=== PATIENT | female | born 1965 | race Caucasian/White ===

== ENCOUNTER 2016-08-12 11:09 | Emergency (ER) | payer MEDICAID ==
--- NOTE | 2016-08-12 11:15 | ED ---
General Adult HPI - General Stated complaint: chest pain Time Seen by Provider: 08/12/16 11:13 Source: RN notes reviewed, old records reviewed - History of Present Illness Initial comments: This is a 51-year-old female here for evaluation. This patient comes in here today for evaluation of left breast pain left chest pain. He does admit to anxiety. He does have family history of heart disease doesn't self-employed blood pressure. Patient's states she has no shortness of breath with feels very anxious, tearful during interview, patient just states that she is concerned something may be wrong she's had issues with her breast before including cellulitis and states this feels just like that. She is to her when she touched touches her left breast although denies any fever. She does have surgery on that left breast - Related Data Home Medications Medication Instructions Recorded Confirmed ALPRAZolam [Xanax] 0.25 mg PO BID PRN 08/12/16 08/12/16 Aspirin 650 mg PO ONCE 08/12/16 08/12/16 Biotin 5,000 mcg PO DAILY 08/12/16 08/12/16 Cyanocobalamin (Vitamin B-12) 1,000 mcg PO Q48H 08/12/16 08/12/16 [Vitamin B-12] Furosemide [Lasix] 20 mg PO DAILY 08/12/16 08/12/16 Irbesartan [Avapro] 300 mg PO DAILY 08/12/16 08/12/16 Previous Rx's Medication Instructions Recorded Clindamycin [Cleocin] 150 mg PO Q6H #28 capsule 08/12/16 Sulfamethox-Tmp 800-160Mg [Bactrim 1 tab PO Q12HR #14 tab 08/12/16 DS 800-160 mg] Allergies Allergy/AdvReac Type Severity Reaction Status Date / Time varenicline [From Chantix] Allergy Rash/Hives Verified 08/12/16 11:54 Review of Systems ROS Statement: Those systems with pertinent positive or pertinent negative responses have been documented in the HPI. ROS Other: All systems not noted in ROS Statement are negative. General Exam - General Exam Comments Initial Comments: Left lateral breast tenderness with scar tissue General appearance: alert, in no apparent distress Head exam: Present: atraumatic, normocephalic, normal inspection Eye exam: Present: normal appearance, PERRL, EOMI. Absent: scleral icterus, conjunctival injection, periorbital swelling ENT exam: Present: normal exam, mucous membranes moist Neck exam: Present: normal inspection. Absent: tenderness, meningismus, lymphadenopathy Respiratory exam: Present: normal lung sounds bilaterally. Absent: respiratory distress, wheezes, rales, rhonchi, stridor Cardiovascular Exam: Present: regular rate, normal rhythm, normal heart sounds. Absent: systolic murmur, diastolic murmur, rubs, gallop, clicks GI/Abdominal exam: Present: soft, normal bowel sounds. Absent: distended, tenderness, guarding, rebound, rigid Extremities exam: Present: normal inspection, full ROM, normal capillary refill. Absent: tenderness, pedal edema, joint swelling, calf tenderness Back exam: Present: normal inspection Neurological exam: Present: alert, oriented X3, CN II-XII intact Psychiatric exam: Present: normal affect, normal mood Skin exam: Present: warm, dry, intact, normal color. Absent: rash Course Vital Signs 08/12/16 08/12/16 08/12/16 11:16 12:21 13:21 Temperature 98.7 F Pulse Rate 107 H 100 102 H Respiratory 20 20 20 Rate Blood Pressure 184/83 153/69 138/76 O2 Sat by Pulse 100 97 Oximetry 08/12/16 15:29 Temperature 99.4 F Pulse Rate 95 Respiratory 20 Rate Blood Pressure 129/70 O2 Sat by Pulse 96 Oximetry - Reevaluation(s) Reevaluation #1: 08/12/16 13:16 Patient's symptoms remain the same EKG Findings - EKG Comments: EKG Findings:: EKG shows sinus tach rate 101, [place] 142, QRS 88, QTC 433 Medical Decision Making - Medical Decision Making 51 female ear feeling much less anxious with normal EKG and troponin feeling much less stressed. Patient does still feel some warmth and tenderness to her left breast, feels like she is having return of cellulitis. Would like to try antibiotics and outpatient basis will return of chest pain or shortness of breath increases or worsens - Lab Data Result diagrams: 08/12/16 11:39 08/12/16 11:39 Lab Results 08/12/16 08/12/16 08/12/16 Range/Units 11:39 11:39 11:39 WBC 16.2 H (3.8-10.6) k/uL RBC 4.16 (3.80-5.40) m/uL Hgb 13.7 (11.4-16.0) gm/dL Hct 39.9 (34.0-46.0) % MCV 95.8 (80.0-100.0) fL MCH 33.0 (25.0-35.0) pg MCHC 34.4 (31.0-37.0) g/dL RDW 11.5 (11.5-15.5) % Plt Count 398 (150-450) k/uL Neutrophils % 88 % Lymphocytes % 7 % Monocytes % 2 % Eosinophils % 1 % Basophils % 0 % Neutrophils # 14.2 H (1.3-7.7) k/uL Lymphocytes # 1.2 (1.0-4.8) k/uL Monocytes # 0.3 (0-1.0) k/uL Eosinophils # 0.2 (0-0.7) k/uL Basophils # 0.1 (0-0.2) k/uL PT (9.0-12.0) sec INR (<1.1) APTT (22.0-30.0) sec Sodium 128 L (137-145) mmol/L Potassium 4.3 (3.5-5.1) mmol/L Chloride 94 L (98-107) mmol/L Carbon Dioxide 24 (22-30) mmol/L Anion Gap 10 mmol/L BUN 8 (7-17) mg/dL Creatinine 0.44 L (0.52-1.04) mg/dL Est GFR (MDRD) Af Amer >60 (>60 ml/min/1.73 sqM) Est GFR (MDRD) Non-Af >60 (>60 ml/min/1.73 sqM) Glucose 107 H (74-99) mg/dL Calcium 10.0 (8.4-10.2) mg/dL Magnesium 1.6 (1.6-2.3) mg/dL Total Bilirubin 0.8 (0.2-1.3) mg/dL AST 22 (14-36) U/L ALT 28 (9-52) U/L Alkaline Phosphatase 82 (38-126) U/L Total Creatine Kinase 142 H (30-135) U/L CK-MB (CK-2) 1.6 (0.0-2.4) ng/mL CK-MB (CK-2) Rel Index 1.1 Troponin I <0.012 (0.000-0.034) ng/mL Total Protein 8.0 (6.3-8.2) g/dL Albumin 5.0 (3.5-5.0) g/dL Lipase 124 (23-300) U/L / Range/Units 11:39 WBC (3.8-10.6) k/uL RBC (3.80-5.40) m/uL Hgb (11.4-16.0) gm/dL Hct (34.0-46.0) % MCV (80.0-100.0) fL MCH (25.0-35.0) pg MCHC (31.0-37.0) g/dL RDW (11.5-15.5) % Plt Count (150-450) k/uL Neutrophils % % Lymphocytes % % Monocytes % % Eosinophils % % Basophils % % Neutrophils # (1.3-7.7) k/uL Lymphocytes # (1.0-4.8) k/uL Monocytes # (0-1.0) k/uL Eosinophils # (0-0.7) k/uL Basophils # (0-0.2) k/uL PT 10.2 (9.0-12.0) sec INR 1.0 (<1.1) APTT 25.2 (22.0-30.0) sec Sodium (137-145) mmol/L Potassium (3.5-5.1) mmol/L Chloride (98-107) mmol/L Carbon Dioxide (22-30) mmol/L Anion Gap mmol/L BUN (7-17) mg/dL Creatinine (0.52-1.04) mg/dL Est GFR (MDRD) Af Amer (>60 ml/min/1.73 sqM) Est GFR (MDRD) Non-Af (>60 ml/min/1.73 sqM) Glucose (74-99) mg/dL Calcium (8.4-10.2) mg/dL Magnesium (1.6-2.3) mg/dL Total Bilirubin (0.2-1.3) mg/dL AST (14-36) U/L ALT (9-52) U/L Alkaline Phosphatase (38-126) U/L Total Creatine Kinase (30-135) U/L CK-MB (CK-2) (0.0-2.4) ng/mL CK-MB (CK-2) Rel Index Troponin I (0.000-0.034) ng/mL Total Protein (6.3-8.2) g/dL Albumin (3.5-5.0) g/dL Lipase (23-300) U/L - Radiology Data Radiology results: report reviewed (Chest x-ray negative for acute disease, ultrasound breast is normal), image reviewed Disposition Clinical Impression: Cellulitis of left breast Disposition: HOME SELF-CARE Condition: Good Instructions: Cellulitis (ED) Prescriptions: Clindamycin [Cleocin] 150 mg PO Q6H #28 capsule Sulfamethox-Tmp 800-160Mg [Bactrim DS 800-160 mg] 1 tab PO Q12HR #14 tab Referrals: Radha Thompson MD [Primary Care Provider] - 1-2 days
[2016-08-12 11:22] VITALS: RESP 20
[2016-08-12 11:54] LABS: Basophils # (A) 0.1 k/uL (0-0.2); Basophils % (A) 0 %; CH 34.7; CHCM 36.3; Eosinophils # (A) 0.2 k/uL (0-0.7); Eosinophils % (A) 1 %; HCT 39.9 % (34.0-46.0); HDW 2.26; HGB 13.7 gm/dL (11.4-16.0); Luc % (Auto) 1; Lymphocytes # (A) 1.2 k/uL (1.0-4.8); Lymphocytes % (A) 7 %; MCHC 34.4 g/dL (31.0-37.0); MCV 95.8 fL (80.0-100.0); Mean Platelet Volume 6.5; Monocytes # (A) 0.3 k/uL (0-1.0); Monocytes % (A) 2 %; Neutrophils # (A) 14.2 k/uL (1.3-7.7); Neutrophils % (A) 88 %; RBC 4.16 m/uL (3.80-5.40); RDW 11.5 % (11.5-15.5); WBC 16.2 k/uL (3.8-10.6); WBC (Perox) 16.05
[2016-08-12 12:00] LABS: Partial Thromboplastin Time 25.2 sec (22.0-30.0); Prothrombin Time 10.2 sec (9.0-12.0)
[2016-08-12 12:04] LABS: ALT 28 U/L (9-52); AST 22 U/L (14-36); Alkaline Phosphatase 82 U/L (38-126); Anion Gap 10 mmol/L; Blood Urea Nitrogen 8 mg/dL (7-17); Carbon Dioxide 24 mmol/L (22-30); Chloride 94 mmol/L (98-107); Glucose 107 mg/dL (74-99); Magnesium 1.6 mg/dL (1.6-2.3); Non-African American GFR(MDRD) >60 (>60 ml/min/1.73 sqM); Potassium 4.3 mmol/L (3.5-5.1); Sodium 128 mmol/L (137-145); Total Bilirubin 0.8 mg/dL (0.2-1.3)
[2016-08-12 12:13] LABS: Creatine Kinase 142 U/L (30-135)
--- NOTE | 2016-08-12 12:15 | XR ---
EXAMINATION TYPE: XR chest 2V DATE OF EXAM: 08/12/2016 12:01 PM COMPARISON: NONE HISTORY: Left-sided chest pain. TECHNIQUE: Frontal and lateral views of the chest are obtained. FINDINGS: There is no focal air space opacity, pleural effusion, or pneumothorax seen. The cardiac silhouette size is within normal limits. The osseous structures are intact. IMPRESSION: No acute process.
[2016-08-12 12:26] LABS: Creatine Kinase MB 1.6 ng/mL (0.0-2.4); Troponin I <0.012 ng/mL (0.000-0.034)
[2016-08-12] MEDS ORDERED: ACETAMINOPHEN IV (For NPO) 1,000 MG in EMPTY BAG 1 BAG IVPB STA (13:16)
[2016-08-12] MEDS ORDERED: KETOROLAC 30 MG/ML 1 ML VIAL IVP STA (13:16)
--- NOTE | 2016-08-12 13:50 | USB ---
Reason for exam: clinical finding. Indicated problem(s): pain in the left breast. US Breast LT Left breast ultrasound includes all four quadrants, the retroareolar region and axilla. Finding demonstrate a benign lymph node at the axilla tail. No significant cystic or solid lesion greater than 0.50cm. These results were verbally communicated with the patient and result sheet given to the patient on 08/12/16. ASSESSMENT: Benign, BI-RAD 2 RECOMMENDATION: Routine screening mammogram of both breasts. (due now for annual exam)
[2016-08-12] MEDS ORDERED: SODIUM CHLORIDE 0.9% 1,000 ML IV STA (14:13)
[2016-08-12] MEDS ORDERED: AMPICILLIN-SULBACTAM 3 GM in SODIUM CHLORIDE 0.9% 100 ML IVPB STA (14:15)
[2016-08-12 15:34] VITALS: BP 129/70; PULSE 95; TEMP 99.4
== END 2016-08-12 15:36 | disposition home or self-care (01) ==
LOC: EC 11:09
DX: N61.0 Mastitis without abscess (principal); R07.9 Chest pain, unspecified; F41.9 Anxiety disorder, unspecified; Z79.82 Long term (current) use of aspirin; Z79.899 Other long term (current) drug therapy; Z88.8 Allergy status to other drugs, medicaments and biological substances; Z82.49 Family history of ischemic heart disease and other diseases of the circulatory system
CPT/HCPCS: 36415; 93005; 80053; 82550; 82553; 83690; 83735; 84484; 85025; 85610; 85730; 71020; 76641; 99285; 96365; 96367; 96375; J1885; J0295; J0131

== ENCOUNTER 2017-06-17 11:30 | Day surgery (SDC) | payer MEDICAID ==
[2017-06-14 15:21] VITALS: BMI 23.0
[~2017-06-17 11:30] MED LIST: LACTATED RINGERS 1,000 ML IV SCH
[2017-06-17] MEDS ORDERED: LIDOCAINE 1% 20 ML VIAL (10MG/ML) FOR IV START INTRADERMA ONE (12:15)
[2017-06-17 12:27] VITALS: TEMP 98.5
[2017-06-17] MEDS ORDERED: PROPOFOL 10 MG/ML 20 ML VIAL IV ONE (12:45)
[2017-06-17] MEDS ORDERED: LIDOCAINE 1% INJ 10MG/ML (20 ML MDV) ONE (12:45)
--- NOTE | 2017-06-17 12:48 | P.GSHP ---
History of Present Illness H&P Date: 06/17/17 Chief Complaint: Colon cancer screening Patient here today for colonoscopy. She has not had one previously. No family history of colon cancer. No bowel related complaints. Past Medical History Past Medical History: Hyperlipidemia, Hypertension, Seizure Disorder Additional Past Medical History / Comment(s): eczema History of Any Multi-Drug Resistant Organisms: None Reported Past Surgical History: Breast Surgery, Tonsillectomy Additional Past Surgical History / Comment(s): BREAST AUGMENTATION, cyst removed from left breast Past Anesthesia/Blood Transfusion Reactions: No Reported Reaction Smoking Status: Current every day smoker - Past Family History Mother Family Medical History: Cancer Father Family Medical History: Cancer, Pulmonary Embolus Medications and Allergies Home Medications Medication Instructions Recorded Confirmed Type ALPRAZolam [Xanax] 0.25 mg PO BID PRN 08/12/16 06/17/17 History Biotin 5,000 mcg PO DAILY 08/12/16 06/17/17 History Furosemide [Lasix] 20 mg PO DAILY 08/12/16 06/17/17 History Irbesartan [Avapro] 300 mg PO DAILY 08/12/16 06/17/17 History Cyanocobalamin (Vitamin B-12) 2,500 mcg PO DIRECTED 06/14/17 06/17/17 History [Vitamin B12] Allergies Allergy/AdvReac Type Severity Reaction Status Date / Time varenicline [From Chantix] Allergy Rash/Hives Verified 06/14/17 15:13 Surgical - Exam Vital Signs Temp Pulse Resp BP Pulse Ox 98.5 F 78 16 150/80 99 06/17/17 12:26 06/17/17 12:26 06/17/17 12:26 06/17/17 12:26 06/17/17 12:26 Physical exam: General: Well-developed, well-nourished HEENT: Normocephalic, sclerae nonicteric Abdomen: Nontender, nondistended Extremities: No edema Neuro: Alert and oriented Assessment and Plan (1) Colon cancer screening Narrative/Plan: Will proceed with colonoscopy at this time. Current Visit: Yes Status: Acute Code(s): Z12.11 - ENCOUNTER FOR SCREENING FOR MALIGNANT NEOPLASM OF COLON SNOMED Code(s): 248296667
--- NOTE | 2017-06-17 13:11 | P.PCN ---
Date of Procedure: 06/17/17 Procedure(s) Performed: PREOPERATIVE DIAGNOSIS: Colon cancer screening POSTOPERATIVE DIAGNOSIS: Multiple small colon polyps PROCEDURE: Colonoscopy with snare polypectomy and biopsy ANESTHESIA: MAC SURGEON: Bud Perez M.D. SPECIMENS: Polyps ENDOSCOPIC PROCEDURE: The patient was placed on the endoscopy table in the left decubitus position. The Olympus colonoscope was inserted into the anus and passed under direct visualization to the base of the cecum. The appendiceal orifice was visualized. From that point the scope was slowly withdrawn inspecting all surfaces carefully. There were no neoplastic inflammatory or polypoid lesions throughout the cecum or ascending colon. At the hepatic flexure a small polyp was identified and removed using the cold biopsy forceps. In the transverse colon there were 2 small polyps both removed using the snare with cautery technique. In the sigmoid colon a small polyp was again removed using the snare with cautery technique. The rectum was free of abnormalities. There was no visible diverticulosis present. Digital rectal examination was normal. The patient was taken to the recovery room in stable condition per anesthesia guidelines. RECOMMENDATIONS: Await biopsy results but anticipate follow-up colonoscopy 5 years.
[2017-06-17 13:27] VITALS: BP 139/84; PULSE 66; RESP 16
== END 2017-06-17 13:46 | disposition home or self-care (01) ==
LOC: ORWHC2ENDO 11:30
PROVIDERS: ATTEND Surgery
DX: Z12.11 Encounter for screening for malignant neoplasm of colon (principal); D12.3 Benign neoplasm of transverse colon; K63.5 Polyp of colon; E78.5 Hyperlipidemia, unspecified; I10 Essential (primary) hypertension; G40.909 Epilepsy, unspecified, not intractable, without status epilepticus; L30.9 Dermatitis, unspecified; Z85.07 Personal history of malignant neoplasm of pancreas; Z79.899 Other long term (current) drug therapy; Z88.8 Allergy status to other drugs, medicaments and biological substances; F17.210 Nicotine dependence, cigarettes, uncomplicated
CPT/HCPCS: 88305; 45380; 45385; J2001; J2704

== ENCOUNTER → 2017-08-31 | Outpatient (CLI) | payer MEDICAID ==
--- NOTE | 2017-08-31 07:35 | US ---
EXAMINATION TYPE: US thyroid st tissue head/neck DATE OF EXAM: 08/31/2017 COMPARISON: NONE CLINICAL HISTORY: E07.9 Disorder of the thyroid. Pt states possible nodule felt on right side by phys ician/ Pt states no known thyroid issues GLAND SIZE: Right Lobe: 4.1 x 1.7 x 1.3 cm Overall Parenchyma: Slightly heterogeneous Left Lobe: 4.0 x 0.9 x 1.1 cm Overall Parenchyma: Slightly heterogeneous Isthmus Thickness: 0.2 cm Bilateral neck scanned, no evidence of lymphadenopathy. No evidence of nodules bilaterally, thyroid h ypervascular. IMPRESSION: Normal thyroid scan
== END | disposition home or self-care (01) ==
LOC: RADUSWWP 06:49
PROVIDERS: ATTEND Family Medicine
DX: E07.9 Disorder of thyroid, unspecified (principal)
CPT/HCPCS: 76536

== ENCOUNTER → 2017-08-31 | Outpatient (CLI) | payer MEDICAID ==
[2017-08-31 07:53] LABS: Anion Gap 12 mmol/L; Blood Urea Nitrogen 7 mg/dL (7-17); Calcium 10.1 mg/dL (8.4-10.2); Carbon Dioxide 23 mmol/L (22-30); Chloride 96 mmol/L (98-107); Glucose 108 mg/dL (74-99); Potassium 4.3 mmol/L (3.5-5.1); Sodium 131 mmol/L (137-145)
[2017-08-31 19:14] LABS: Thyroid Peroxidase Antibodies 99.3 U/mL (0.0-60.0)
== END | disposition home or self-care (01) ==
LOC: LABWHC1 07:07
PROVIDERS: ATTEND Family Medicine
DX: E07.9 Disorder of thyroid, unspecified (principal); E22.2 Syndrome of inappropriate secretion of antidiuretic hormone; B07.8 Other viral warts
CPT/HCPCS: 36415; 80048; 84439; 84443; 84480; 86376

== ENCOUNTER → 2017-11-22 | Outpatient (CLI) | payer MEDICAID ==
--- NOTE | 2017-11-22 10:00 | MM ---
Reason for exam: clinical finding. History: Patient is postmenopausal. Family history of breast cancer in mother at age 50. Breast lifts of both breasts, 2003. Took hormonal contraceptives for 15 years. Indicated problem(s): non-bloody discharge, skin thickening or retraction, and other indicated problem in the left breast. Physical Findings: Nurse did not find any significant physical abnormalities on exam. MG 3D Diag Mammo W/Cad LT CC, MLO, ML, spot compression CC, and spot compression MLO view(s) were taken of the left breast. The breast tissue is extremely dense which could obscure a lesion on mammography. Focal asymmetric density 12 o'clock left breast less conspicuous on spot images. Ultrasound recommended. These results were verbally communicated with the patient and result sheet given to the patient on 11/22/17. ASSESSMENT: Incomplete: need additional imaging evaluation, BI-RAD 0 RECOMMENDATION: Ultrasound of the left breast.
--- NOTE | 2017-11-22 10:01 | USB ---
Reason for exam: additional evaluation requested from abnormal screening. History: Patient is postmenopausal. Family history of breast cancer in mother at age 50. Breast lifts of both breasts, 2003. Took hormonal contraceptives for 15 years. US Breast LT Left complete breast ultrasound includes all four quadrants, the retroareolar region and axilla. Finding demonstrates no cystic or solid lesion seen. These results were verbally communicated with the patient and result sheet given to the patient on 11/22/17. ASSESSMENT: Probably benign, BI-RAD 3 RECOMMENDATION: Follow-up diagnostic mammogram of the left breast in 6 months. Manage patient on a clinical basis.
== END | disposition home or self-care (01) ==
LOC: RADMAMWWP 08:05
PROVIDERS: ATTEND Family Medicine
DX: R92.8 Other abnormal and inconclusive findings on diagnostic imaging of breast (principal); N64.52 Nipple discharge
CPT/HCPCS: 77061; 77065

== ENCOUNTER → 2018-02-23 | Outpatient (CLI) | payer MEDICAID ==
[2018-02-23 15:14] VITALS: BP 138/81; PULSE 84; BMI 23.0
--- NOTE | 2018-02-23 15:33 | P.GSHP ---
History of Present Illness H&P Date: 02/23/18 Issues a 52-year-old white female who presents with a complaint of multiple episodes of cellulitis in the left breast. The last episode was approximately a month ago. She states that she develops crusting of the left nipple which becomes itchy she then has redness of the breast and a high fever. She has not noted any lumps in her breasts. She has no complaints related to the right breast. Patient had a left breast mammogram performed on [id number]. A focal asymmetric density was noted at 12:00 in the left left breast and an ultrasound was recommended and performed. This did not reveal any cystic or solid lesion was felt to be most likely benign and follow-up diagnostic mammogram in 6 months was recommended. She has been treated in the past with Keflex and had resolution with this. Family history: 1. mother: breast cacner in late 60's 2. father: pancreatic cancer 3. maternal aunt: breast cancer 60's Hormonal history: Menarche:12 Pregnancies: 2 pregnancies, 2 children, first born at 27, did not breast-feed Menopause: 40 control pills: Negative Hormones: Negative Past surgical history: 1. Depressed left bilateral 2. Cyst removed from breast Past Medical History: 1. HTN Social History: 1. smoke: yes 1/PPD for 30 years 2. Alcohol: Beer weekly 3. Marijuana: - Constitutional Constitutional: Denies chills, Denies fever - EENT Eyes: denies blurred vision, denies pain Ears: deny: decreased hearing, tinnitus Ears, nose, mouth and throat: Denies headache, Denies sore throat - Breasts Breasts: bilateral: as per HPI - Cardiovascular Cardiovascular: Reports high blood pressure - Respiratory Comment: nictine dependance Respiratory: Denies cough, Denies 7 - Gastrointestinal Gastrointestinal: Denies abdominal pain, Denies diarrhea, Denies nausea, Denies vomiting - Genitourinary (Female) Genitourinary: Denies dysuria, Denies hematuria - Menstruation Menstruation: Reports postmenopausal - Musculoskeletal Comment: none scheduled for a bone density - Integumentary Comment: Eczema - Neurological Neurological: Denies numbness, Denies weakness - Psychiatric Psychiatric: Denies anxiety, Denies depression - Endocrine Endocrine: Denies fatigue, Denies weight change - Hematologic/Lymphatic Comment: none - Allergic/Immunologic Comment: chantix Past Medical History Past Medical History: Hyperlipidemia, Hypertension, Seizure Disorder Additional Past Medical History / Comment(s): eczema History of Any Multi-Drug Resistant Organisms: None Reported Past Surgical History: Breast Surgery, Tonsillectomy Additional Past Surgical History / Comment(s): BREAST AUGMENTATION, cyst removed from left breast Past Anesthesia/Blood Transfusion Reactions: No Reported Reaction Smoking Status: Current every day smoker - Past Family History Mother Family Medical History: Cancer Father Family Medical History: Cancer, Pulmonary Embolus Medications and Allergies Home Medications Medication Instructions Recorded Confirmed Type ALPRAZolam [Xanax] 0.25 mg PO BID PRN 08/12/16 06/17/17 History Biotin 5,000 mcg PO DAILY 08/12/16 06/17/17 History Furosemide [Lasix] 20 mg PO DAILY 08/12/16 06/17/17 History Irbesartan [Avapro] 300 mg PO DAILY 08/12/16 06/17/17 History Cyanocobalamin (Vitamin B-12) 2,500 mcg PO DIRECTED 06/14/17 06/17/17 History [Vitamin B12] Allergies Allergy/AdvReac Type Severity Reaction Status Date / Time varenicline [From Chantix] Allergy Rash/Hives Verified 06/14/17 15:13 Surgical - Exam - General well developed, well nourished, no distress - Eyes normal ocular movement, no icteric - ENT no hearing loss, no congestion - Neck no masses, trachea midline - Respiratory normal respiratory effort, clear to auscultation - Cardiovascular Rhythm: regular Heart Sounds: normal: S1, S2 - Abdomen Abdomen: soft, non tender, no guarding, no rigid, no rebound - Integumentary well healed scars of both breast - Neurologic no disoriented, no combative - Musculoskeletal normal gait - Psychiatric oriented to time, oriented to person, oriented to place, speech is normal, memory intact Breast examination: Right breast: well healed scars from left mammoplasty multi-positional exam of dominant masses or nodules of concern Right axilla: No adenopathy of concern Left breast: Well-healed scars from her mammoplasty no dominant masses or nodules of concern on multi-positional exam Left axilla: No adenopathy of concern Results Mammogram results reviewed for the left breast, she is going to have a right breast mammogram performed Assessment and Plan Assessment: Impression: 1. Recurrent episodes of left breast cellulitis 2. Nicotine dependence 3. Hypertension 4. Postmenopausal 5. Eczema Plan: 1. Right breast mammogram 2. Abstain from nicotine and caffeine if possible 3. Conservative management Conversation was had with the patient regarding the fact that nicotine or caffeine may exacerbate fibrocystic changes in the breast. She is encouraged to abstain from these. If she has recurrent cellulitis of the breast and would like to see her at that time. cc: Dr. Thompson
--- NOTE | 2018-02-24 08:45 | MM ---
Reason for exam: follow-up at short interval from prior study. Last mammogram was performed 3 months ago. History: Patient is postmenopausal. Family history of breast cancer in mother at age 50. Breast lifts of both breasts, 2002. Took hormonal contraceptives for 15 years. Physical Findings: Breast exam performed by Dr. Ross. MG 3D Diag Mammo W/Cad RT CC and MLO view(s) were taken of the right breast. Prior study comparison: November 22, 2017, left breast MG 3d diag mammo w/cad LT. The breast tissue is heterogeneously dense. This may lower the sensitivity of mammography. No significant new findings when compared with previous films. These results were verbally communicated with the patient and result sheet given to the patient on 02/23/18. ASSESSMENT: Probably benign, BI-RAD 3 RECOMMENDATION: Follow-up diagnostic mammogram of both breasts in 6 months. Patient's left breast was performed 3 months ago. Short interval follow up of the leftbreast can be performed in 6 months from now and this can be used as the patient's new annual date.
== END | disposition home or self-care (01) ==
LOC: WWCWWP 14:58
PROVIDERS: ATTEND Surgery
DX: N64.52 Nipple discharge (principal)
CPT/HCPCS: 77061; 77065

== ENCOUNTER → 2018-03-23 | Outpatient (CLI) | payer MEDICAID ==
--- NOTE | 2018-03-23 16:12 | BD ---
EXAMINATION TYPE: Axial Bone Density DATE OF EXAM: 03/23/2018 COMPARISON: NONE CLINICAL HISTORY: Postmenopausal female. Osteoporosis screening. Height: 61.5 Weight: 130.7 FRAX RISK QUESTIONS: Alcohol (3 or more units per day): no Family History (Parent hip fracture): no Glucocorticoids (More than 3mos): no (Ex: prednisone, prednisolone, methylprednisolone, dexamethasone, and hydrocortisone). History of Fracture in Adulthood: no Secondary Osteoporosis: 1. Type 1 Diabetes: no 2. Hyperthyroidism: no 3. Menopause before 45: yes 4. Malnutrition: no 5. Chronic liver disease: no Rheumatoid Arthritis: no Current Tobacco Use: yes RISK FACTORS HISTORY OF: Family History of Osteoporosis: no Active: yes Diet low in dairy products/other sources of calcium: no Postmenopausal woman: age 40 Lost more than 2 inches in height since high school: no MEDICATIONS: Lasix, vit b12 Additional History: EXAM MEASUREMENTS: Bone mineral densitometry was performed using the [employer] System. Bone mineral density as measured about the Lumbar spine is: ----- L1-L4(G/cm2): 1.083 T Score Values are as follows: ----- L2: -1.7 ----- L3: -0.5 ----- L4: -0.1 ----- L1-L4: -0.8 Bone mineral density : baseline Bone mineral density about the R hip (g/cm2): 0.808 Bone mineral density about the L hip (g/cm2): 0.856 T Score values are as follows: -----R Neck: -1.3 -----L Neck: -1.7 -----R Total: -0.9 -----L Total: -0.8 Bone mineral density : baseline IMPRESSION: Osteopenia (T Score between -2.5 and -1). There is slightly increased risk of fracture and the patient may be considered for treatment. Re-Screen 2-5 years. NOTE: T-SCORE=SD OF THE YOUNG ADULT MEAN.
== END | disposition home or self-care (01) ==
LOC: RADMAMWWP 15:28
PROVIDERS: ATTEND Family Medicine
DX: M85.80 Other specified disorders of bone density and structure, unspecified site (principal); Z78.0 Asymptomatic menopausal state
CPT/HCPCS: 77080

== ENCOUNTER → 2018-11-08 | Outpatient (CLI) | payer MEDICAID ==
--- NOTE | 2018-11-08 09:19 | MM ---
Reason for exam: follow-up at short interval from prior study. Last mammogram was performed 8 months ago. History: Patient is postmenopausal. Family history of breast cancer in mother at age 50. Breast lifts of both breasts, 2002. Took hormonal contraceptives for 15 years. Physical Findings: Nurse did not find any significant physical abnormalities on exam. MG 3D Diag Mammo W/Cad KESHAWN Bilateral CC and MLO view(s) were taken. Prior study comparison: February 23, 2018, right breast MG 3d diag mammo w/cad RT. November 22, 2017, left breast MG 3d diag mammo w/cad LT. The breast tissue is heterogeneously dense. This may lower the sensitivity of mammography. Post surgical change bilaterally. Right lateral middle depth asymmetry is seen on spot CC view, this looks unchanged from the prior exams. This is seen directly posterior to the scar and measures 2mm. These results were verbally communicated with the patient and result sheet given to the patient on 11/08/18. ASSESSMENT: Benign, BI-RAD 2 RECOMMENDATION: Routine screening mammogram of both breasts in 1 year.
== END | disposition home or self-care (01) ==
LOC: RADMAMWWP 06:46
PROVIDERS: ATTEND Surgery
DX: R92.8 Other abnormal and inconclusive findings on diagnostic imaging of breast (principal)
CPT/HCPCS: 77062; 77066

== ENCOUNTER → 2019-12-27 | Outpatient (CLI) | payer MEDICAID ==
--- NOTE | 2019-12-28 10:56 | ECHOF ---
Referral Reason:R01.1 Cardiac murmur MEASUREMENTS -------- HEIGHT: 157.5 cm WEIGHT: 59.0 kg BP: RVIDd: 3.0 cm (< 3.3) IVSd: 1.0 cm (0.6 - 1.1) LVIDd: 3.8 cm (3.9 - 5.3) LVPWd: 1.3 cm (0.6 - 1.1) IVSs: 1.3 cm LVIDs: 2.8 cm LVPWs: 1.3 cm LA Diam: 2.9 cm (2.7 - 3.8) LAESV Index (A-L): 20.57 ml/m Ao Diam: 2.8 cm (2.0 - 3.7) AV Cusp: 1.9 cm (1.5 - 2.6) MV EXCURSION: 13.254 mm (> 18.000) MV EF SLOPE: 109 mm/s (70 - 150) EPSS: 0.3 cm MV E Alfa: 0.67 m/s MV DecT: 211 ms MV A Alfa: 0.64 m/s MV E/A Ratio: 1.05 RAP: 5.00 mmHg RVSP: 26.52 mmHg FINDINGS -------- Sinus rhythm. This was a technically good study. LV size, wall thickness and systolic function are normal, with an EF greater than 55%. The left shea tricular size is normal. The right ventricle is normal in size. The left atrial size is normal. The right atrial size is normal. The aortic valve is trileaflet, and appears structurally normal. No aortic stenosis or regurgitation. Mild mitral regurgitation is present. Trace tricuspid regurgitation present. Right ventricular systolic pressure is normal at < 35 mmHg. There is no pulmonic regurgitation present. The aortic root size is normal. There is no pericardial effusion. CONCLUSIONS -------- 1. Sinus rhythm. 2. LV size, wall thickness and systolic function are normal, with an EF greater than 55%. 3. The left ventricular size is normal. 4. The right ventricle is normal in size. 5. The left atrial size is normal. 6. The right atrial size is normal. 7. Mild mitral regurgitation is present. 8. Trace tricuspid regurgitation present. 9. Right ventricular systolic pressure is normal at < 35 mmHg. 10. There is no pulmonic regurgitation present. WEB CONTENT EXECUTIVE: Ame Middleton RDCS
== END | disposition home or self-care (01) ==
LOC: RADECHMAIN 16:10
PROVIDERS: ATTEND Family Medicine
DX: I08.1 Rheumatic disorders of both mitral and tricuspid valves (principal)
CPT/HCPCS: 93306

== ENCOUNTER → 2020-08-26 | Outpatient (CLI) | payer MEDICAID ==
--- NOTE | 2020-08-26 16:52 | BD ---
EXAMINATION TYPE: Axial Bone Density DATE OF EXAM: 08/26/2020 COMPARISON: 03/23/2018 CLINICAL HISTORY: Postmenopausal screening Height: 61 IN Weight: 131 LBS FRAX RISK QUESTIONS: Secondary Osteoporosis: 3. Menopause before 45: YES AGE 40 Current Tobacco Use: YES RISK FACTORS HISTORY OF: Family History of Osteoporosis: MOTHER Active: YES Postmenopausal woman: AGE 40 MEDICATIONS: Thyroid Medications: YES Which medication: Levothyroxine How Lon YEAR Additional Medications: VIT D, BLOOD PRESSURE MEDS, LASIX, AMLODIPINE, EXAM MEASUREMENTS: Bone mineral densitometry was performed using the [employer] System. Bone mineral density as measured about the Lumbar spine is: ----- L1-L4(G/cm2): 1.071 T Score Values are as follows: ----- L2: -1.7 ----- L3: -0.9 ----- L4: 0.3 ----- L1-L4: -0.9 Bone mineral density has: Decreased -0.2% since study of: 03/23/2018 Bone mineral density about the R hip (g/cm2): 0.812 Bone mineral density about the L hip (g/cm2): 0.804 T Score values are as follows: -----R Neck: -1.6 -----L Neck: -1.7 -----R Total: -0.8 -----L Total: -1.2 Bone mineral density has: Decreased -2.1% since study of: 03/23/2018 IMPRESSION: Osteopenia (T Score between -2.5 and -1). There is slightly increased risk of fracture and the patient may be considered for treatment. Re-Screen 2-5 years. NOTE: T-SCORE=SD OF THE YOUNG ADULT MEAN.
--- NOTE | 2020-08-27 14:42 | MM ---
Reason for exam: screening (asymptomatic). Last mammogram was performed 1 year and 10 months ago. History: Patient is postmenopausal. Family history of breast cancer in mother at age 50 and breast cancer in maternal aunt at age 60. Breast lifts of both breasts, 2003. Took hormonal contraceptives for 15 years. Physical Findings: A clinical breast exam by your physician is recommended on an annual basis and results should be correlated with mammographic findings. MG 3D Screening Mammo W/Cad Bilateral CC and MLO view(s) were taken. Prior study comparison: November 08, 2018, bilateral MG 3d diag mammo w/cad [facility]. February 23, 2018, right breast MG 3d diag mammo w/cad RT. The breast tissue is heterogeneously dense. This may lower the sensitivity of mammography. There is no discrete abnormality. No significant changes when compared with prior studies. ASSESSMENT: Benign, BI-RAD 2 RECOMMENDATION: Routine screening mammogram of both breasts in 1 year.
== END | disposition home or self-care (01) ==
LOC: RADMAMWWP 15:55
PROVIDERS: ATTEND Obstetrics & Gynecology
DX: Z12.31 Encounter for screening mammogram for malignant neoplasm of breast (principal); M85.89 Other specified disorders of bone density and structure, multiple sites; Z78.0 Asymptomatic menopausal state; Z80.3 Family history of malignant neoplasm of breast
CPT/HCPCS: 77063; 77067; 77080

== ENCOUNTER → 2020-11-27 | Outpatient (CLI) | payer MEDICAID ==
--- NOTE | 2020-11-27 10:33 | CTL ---
EXAMINATION TYPE: CT Low Dose Lung DATE OF EXAM ORDERED: 11/27/2020 HISTORY: 55-year-old female personal history of tobacco use, Lt upper rib pain. Lung cancer screening CT DLP: 64.[address] CTDI: 1.9 mGy Automated exposure control for dose reduction was used. SCREENING VISIT: Baseline COMPARISON: None TECHNIQUE: Low dose computed tomography scan was performed through the chest at with coronal and sagi ttal reconstructions. Additional coronal MIP reconstruction was generated.. CT DIAGNOSTIC QUALITY: Satisfactory FINDINGS: Heart normal size without pericardial effusion. Scattered three-vessel coronary artery calcifications are present. Scattered mild atherosclerotic arch calcifications and conventional arch vessel branching anatomy. No thoracic lymphadenopathy by CT size criteria. Mild centrilobular emphysema. Mild diffuse bronchial wall thickening. Mild dependent atelectasis. Gerald e additional strandy basilar atelectasis. 3 mm anterior right upper lobe pulmonary nodule, axial image 115 4 mm peripheral left lower lobe pulmonary nodule, axial image 208. 4 mm inferior lingular pulmonary nodule, axial image 177. 5 mm anterior left midlung pulmonary nodule, axial image 124. No consolidation or pleural effusion. Small hiatal hernia. A 2.1 cm hypodense lesion anterior left liver lobe, inadequately characterized o n this noncontrast study, likely cyst. A few calcified granulomas in the spleen. Bones: No osseous destructive process. IMPRESSION: 1. A few scattered pulmonary nodules measuring up to 5 mm on baseline, benign. Continue annual screen ing. 2. COPD with mild emphysema. 3. CAD with scattered three-vessel coronary artery calcifications. CT LUNG RAD AND CT CHEST RECOMMENDATION: Lung-Rad 2 Benign Appearance or Behavior: Continue annual sc reening with LDCT in 12 months.
== END | disposition home or self-care (01) ==
LOC: RADCTMAIN 07:29
PROVIDERS: ATTEND Family Medicine
DX: Z12.2 Encounter for screening for malignant neoplasm of respiratory organs (principal); J43.2 Centrilobular emphysema; R91.8 Other nonspecific abnormal finding of lung field; I25.10 Atherosclerotic heart disease of native coronary artery without angina pectoris; Z87.891 Personal history of nicotine dependence
CPT/HCPCS: 71271

== ENCOUNTER → 2021-12-03 | Outpatient (CLI) | payer MEDICAID ==
--- NOTE | 2021-12-03 09:28 | CT ---
EXAMINATION TYPE: CT chest w con DATE OF EXAM: 12/03/2021 COMPARISON: Low-dose CT chest 11/27/2020 HISTORY: Solitary lung nodule CT DLP: 215.9 mGycm, Automated exposure control for dose reduction was used. CONTRAST: Performed injected with 70 ML mL of Isovue 300. TECHNIQUE: Axial images were obtained at 5 mm thick sections. Reconstructed images are reviewed on To8to computer in the coronal plane. FINDINGS: Portion of the thyroid visualized is normal. The pneumatoceles within the anterior right lung. A stable 0.5 cm nodules in the periphery of the left lung. Series 4 image 38. Tiny peripheral density remains present at the posterior lateral left lung base. Series 4 image 44. A small nodule which may be within the major fissure on the left could be a small lymph node remains stable. Series 4 image 2 7. Punctate peripheral density in the right lung appears smaller No enlarged mediastinal or hilar adenopathy is evident. The ascending aorta diameter at the level o f the main pulmonary artery is 3.3 cm. The main pulmonary artery diameter at the bifurcation is 2.3 cm. Small hiatal hernia is present. Limited CT sections are obtained through the upper abdomen. A hepatic cyst measuring 3 cm and 10 Houn sfield units is within the anterior right lobe. IMPRESSIONS: 1. Stable small nodules. Follow-up low-dose CT chest in 6 months is recommended to confirm continued stability. This should be followed over the course of 2 years.
== END | disposition home or self-care (01) ==
LOC: RADCTMAIN 08:49
PROVIDERS: ATTEND Family Medicine
DX: R91.8 Other nonspecific abnormal finding of lung field (principal)
CPT/HCPCS: 71260; Q9967

== ENCOUNTER → 2022-01-28 | Outpatient (CLI) | payer MEDICAID ==
--- NOTE | 2022-01-28 10:00 | MM ---
Reason for Exam: Screening (asymptomatic). Last mammogram was performed 1 year(s) and 6 month(s) ago. Patient History: Menarche at age 12. First Full-Term at age 27. Postmenopausal. Patient used Hormonal Contraceptives for 15 years. Maternal aunt had breast cancer, age 60. Mother had breast cancer, age 50. Risk Values: Katerine 5 year model risk: 2.4%. NCI Lifetime model risk: 15.2%. Prior Study Comparison: 02/23/2018 Right Diagnostic Mammogram, [facility]. 11/08/2018 Bilateral Diagnostic Mammogram, [facility]. 08/26/2020 Bilateral Screening Mammogram, [facility]. Tissue Density: The breast tissue is heterogeneously dense. This may lower the sensitivity of mammography. Findings: Analyzed By CAD. There is no suspicious group of microcalcifications or new suspicious mass in either breast. Overall Assessment: Negative, BI-RAD 1 Management: Screening Mammogram of both breasts in 1 year. Some advise bilateral breast ultrasound surveillance in patients with background dense tissue . A clinical breast exam by your physician is recommended on an annual basis and results should be correlated with mammographic findings. Electronically signed and approved by: Wojciech Kwan M.D.
== END | disposition home or self-care (01) ==
LOC: RADMAMWWP 08:15
PROVIDERS: ATTEND Family Medicine
DX: Z12.31 Encounter for screening mammogram for malignant neoplasm of breast (principal); Z78.0 Asymptomatic menopausal state; Z80.3 Family history of malignant neoplasm of breast
CPT/HCPCS: 77063; 77067

== ENCOUNTER → 2022-08-27 | Outpatient (CLI) | payer MEDICAID ==
--- NOTE | 2022-08-27 10:40 | BD ---
EXAMINATION TYPE: Axial Bone Density DATE OF EXAM: 08/27/2022 CLINICAL HISTORY: 57 years old Female. ICD-10 CODE: Z78.0 DISORDER OF BONE Nuclear Medicine Study in the last 2 weeks: Barium Study in the last week: : Height: Weight: FRAX RISK QUESTIONS: Alcohol (3 or more units per day): yes Family History (Parent hip fracture): no Glucocorticoids (More than 3mos): no History of Fracture in Adulthood: no Secondary Osteoporosis: 1. Type 1 Diabetes: no 2. Hyperthyroidism: no 3. Menopause before 45: yes 4. Malnutrition: no 5. Chronic liver disease: no Rheumatoid Arthritis: no Current Tobacco Use: yes RISK FACTORS HISTORY OF: Hip Fracture (Right/Left): no Spine Fracture: no History of Wrist Fracture: no Surgery to Spine/Hip(right/left)/Wrist (right/left): no Family History of Osteoporosis: mother Active: yes Diet low in dairy products/other sources of calcium: no Postmenopausal woman: yes Take estrogen and/or progesterone medications: no Lost more than 2 inches in height since high school: yes Frequent falls: no Poor Health: no Hyperparathyroidism: no Adrenal Insufficiency: no MEDICATIONS: Prednisone or other steroids: no Thyroid Medications: levothyroxin How Long: past 2 years Osteoporosis Medications: no Additional Medications: BP meds x2, vit d weekly, Additional History: EXAM MEASUREMENTS: Bone mineral densitometry was performed using the Standardized Safety System. Bone mineral density as measured about the Lumbar spine is: ----- L1-L4(G/cm2): 1.031 T Score Values are as follows: ----- L1: -2.2 ----- L2: -2.1 ----- L3: -0.7 ----- L4: -0.7 ----- L1-L4: 1.2 Z Score Values are as follows: ----- L1: -1.0 ----- L2: -0.9 ----- L3: 0.4 ----- L4: 0.5 ----- L1-L4: -0.1 Bone mineral density has: decreased -3.7 % since study of: 08/26/2020 Bone mineral density about the R hip (g/cm2): 0.844 Bone mineral density about the L hip (g/cm2): 0.840 T Score values are as follows: -----R Neck: -1.8 -----L Neck: -1.8 -----R Total: -1.3 -----L Total: -1.3 Z Score values are as follows: -----R Neck: -0.5 -----L Neck: -0.5 -----R Total: -0.4 -----L Total: -0.4 Bone mineral density has: decreased -4.5 % since study of: 08/26/2020 FRAX%s: The graph provided illustrates a 9.8% chance for a major osteoporotic fx and a 2.1% chance fo r the hips probability for fx in 10 years time. IMPRESSION: Osteopenia (T Score between -2.5 and -1). There is slightly increased risk of fracture and the patient may be considered for treatment. Re-Screen 2-5 years. NOTE: T-SCORE=SD OF THE YOUNG ADULT MEAN.
== END | disposition home or self-care (01) ==
LOC: RADBDWWP 09:08
PROVIDERS: ATTEND Family Medicine
DX: M85.89 Other specified disorders of bone density and structure, multiple sites (principal); Z78.0 Asymptomatic menopausal state
CPT/HCPCS: 77080

== ENCOUNTER → 2022-08-27 | Outpatient (CLI) | payer MEDICAID ==
--- NOTE | 2022-08-27 09:56 | XR ---
EXAMINATION TYPE: XR foot complete LT DATE OF EXAM: 08/27/2022 CLINICAL HISTORY: Pain. TECHNIQUE: Frontal, lateral, and oblique images of the left foot are obtained. COMPARISON: None FINDINGS: There is no acute fracture/dislocation evident in the left foot. There is moderate to tammy re narrowing with subchondral cystic change at the base of the second metatarsal articulation with th e middle cuneiform. There is at least moderate narrowing and subchondral cystic change at the base of the third metatarsal articulating with the lateral cuneiform. There is moderate narrowing at the bas e of the fourth metatarsal. There is moderate-sized inferior calcaneal spur. Pes planus is present. Well-defined 4 mm round fragment along the dorsal base of the first metatarsal on lateral view could reflect accessory ossicle or product of old trauma. The overlying soft tissue appears unremarkable. IMPRESSION: As above. 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
== END | disposition home or self-care (01) ==
LOC: RADXRMAIN 09:34
PROVIDERS: ATTEND Family Medicine
DX: M19.072 Primary osteoarthritis, left ankle and foot (principal); M77.32 Calcaneal spur, left foot; M21.42 Flat foot [pes planus] (acquired), left foot; M85.672 Other cyst of bone, left ankle and foot; M89.8X7 Other specified disorders of bone, ankle and foot

== ENCOUNTER 2023-03-01 08:30 | Day surgery (SDC) | payer MEDICAID ==
[2023-03-01 08:52] VITALS: TEMP 97.6
[2023-03-01] MEDS: LACTATED RINGERS 1,000 ML IV SCH ×3 (09:01→09:33)
[2023-03-01] MEDS ORDERED: PROPOFOL 10 MG/ML 20 ML VIAL IV ONE (09:14)
[2023-03-01] MEDS ORDERED: LIDOCAINE 2% INJ 20 MG/ML (2 ML VIAL) ONE (09:14)
--- NOTE | 2023-03-01 09:18 | P.GSHP ---
History of Present Illness H&P Date: 03/01/23 Chief Complaint: Screening 57-year-old female here for colonoscopy. Last colonoscopy 5 years ago. Patient had multiple colon polyps. No bowel complaints. No family history of colon cancer. Past Medical History Past Medical History: Hyperlipidemia, Hypertension, Skin Disorder, Thyroid Disorder Additional Past Medical History / Comment(s): eczema, hx. colon polyps History of Any Multi-Drug Resistant Organisms: None Reported Past Surgical History: Breast Surgery, Tonsillectomy Additional Past Surgical History / Comment(s): BREAST AUGMENTATION, cyst removed from left breast, colonoscopy Past Anesthesia/Blood Transfusion Reactions: No Reported Reaction Smoking Status: Current every day smoker - Past Family History Mother Family Medical History: Cancer Father Family Medical History: Cancer, Pulmonary Embolus Medications and Allergies Home Medications Medication Instructions Recorded Confirmed Type ALPRAZolam [Xanax] 0.25 mg PO BID PRN 08/12/16 03/01/23 History Furosemide [Lasix] 40 mg PO DAILY 08/12/16 03/01/23 History Irbesartan [Avapro] 300 mg PO DAILY 08/12/16 03/01/23 History Cyanocobalamin (Vitamin B-12) 5,000 mcg PO DIRECTED 06/14/17 03/01/23 History [Vitamin B12] Ergocalciferol [Vitamin D2 (1250 1,250 mcg PO WEEKLY 02/24/23 03/01/23 History Mcg = [id number] Iu)] Levothyroxine Sodium [Synthroid] 50 mcg PO DAILY 02/24/23 03/01/23 History amLODIPine [Norvasc] 5 mg PO DAILY 02/24/23 03/01/23 History Allergies Allergy/AdvReac Type Severity Reaction Status Date / Time varenicline [From Chantix] Allergy Rash/Hives Verified 03/01/23 08:52 Surgical - Exam Vital Signs Temp Pulse Resp BP Pulse Ox 97.6 F 54 L 18 142/74 100 03/01/23 08:50 03/01/23 08:50 03/01/23 08:50 03/01/23 08:50 03/01/23 08:50 Physical exam: General: Well-developed, well-nourished HEENT: Normocephalic, sclerae nonicteric Abdomen: Nontender, nondistended Extremities: No edema Neuro: Alert and oriented Assessment and Plan (1) Colon cancer screening Narrative/Plan: Will proceed with colonoscopy at this time. Current Visit: No Status: Acute Code(s): Z12.11 - ENCOUNTER FOR SCREENING FOR MALIGNANT NEOPLASM OF COLON SNOMED Code(s): 495770266
--- NOTE | 2023-03-01 09:34 | P.PCN ---
Date of Procedure: 03/01/23 Procedure(s) Performed: PREOPERATIVE DIAGNOSIS: Screening with history of polyps POSTOPERATIVE DIAGNOSIS: Transverse colon polyps PROCEDURE: Colonoscopy with snare polypectomy ANESTHESIA: MAC SURGEON: Bud Perez M.D. SPECIMENS: Polyps ENDOSCOPIC PROCEDURE: The patient was placed on the endoscopy table in the left decubitus position. The Olympus colonoscope was inserted into the anus and passed under direct visualization to the base of the cecum. The appendiceal orifice was visualized. From that point the scope was slowly withdrawn inspecting all surfaces carefully. There were no neoplastic inflammatory or polypoid lesions throughout the cecum or ascending colon. In the transverse colon 3 separate polyps were identified and removed using the snare with cautery technique. The remainder of the descending sigmoid and rectum appeared normal. There was no visible diverticulosis. Digital rectal examination was normal. The patient was taken to the recovery room in stable condition per anesthesia guidelines. RECOMMENDATIONS: Await biopsy results. Repeat colonoscopy 5 years.
[2023-03-01 09:51] VITALS: RESP 16
[2023-03-01 10:03] VITALS: BP 125/77; PULSE 68
== END 2023-03-01 10:16 | disposition home or self-care (01) ==
LOC: ORWHC2ENDO 08:30
PROVIDERS: ATTEND Surgery
DX: Z12.11 Encounter for screening for malignant neoplasm of colon (principal); D12.3 Benign neoplasm of transverse colon; E78.5 Hyperlipidemia, unspecified; I10 Essential (primary) hypertension; F17.200 Nicotine dependence, unspecified, uncomplicated; Z86.010 Personal history of colon polyps; Z88.1 Allergy status to other antibiotic agents
CPT/HCPCS: 88305; 45385; J2704; J2001

== ENCOUNTER → 2023-04-29 | Outpatient (CLI) | payer MEDICAID ==
--- NOTE | 2023-05-02 14:35 | MM ---
Reason for Exam: Screening (asymptomatic). Last mammogram was performed 1 year(s) and 3 month(s) ago. Patient History: Menarche at age 12. First Full-Term at age 27. Postmenopausal. Patient used Hormonal Contraceptives for 15 years. Maternal aunt had breast cancer, age 60. Mother had breast cancer, age 50. Risk Values: Katerine 5 year model risk: 2.5%. NCI Lifetime model risk: 14.9%. Prior Study Comparison: 11/08/2018 Bilateral Diagnostic Mammogram, [facility]. 08/26/2020 Bilateral Screening Mammogram, [facility]. 01/28/2022 Bilateral MG 3D screening mammo w/cad, [facility]. Tissue Density: The breast tissue is extremely dense which could obscure a lesion on mammography. Findings: Analyzed By CAD. Pattern appears stable. No suspicious groups of microcalcifications, spiculated or lobular masses, architectural distortion or other secondary signs of malignancy are mammographically apparent. Overall Assessment: Benign, BI-RAD 2 Management: Screening Mammogram of both breasts in 1 year. A negative mammogram report should not preclude additional follow up of suspicious palpable abnormalities. Patient should continue monthly self breast exam. A clinical breast exam by your physician is recommended on an annual basis and results should be correlated with mammographic findings. Electronically signed and approved by: Rashad Mckenzie D.O. Radiologis
== END | disposition home or self-care (01) ==
LOC: RADMAMWWP 13:44
PROVIDERS: ATTEND Obstetrics & Gynecology
DX: Z12.31 Encounter for screening mammogram for malignant neoplasm of breast (principal); Z80.3 Family history of malignant neoplasm of breast; Z78.0 Asymptomatic menopausal state
CPT/HCPCS: 77063; 77067

== ENCOUNTER → 2024-02-28 | Outpatient (CLI) | payer MEDICAID ==
--- NOTE | 2024-02-28 11:21 | CTL ---
EXAMINATION TYPE: CT Low Dose Lung DATE OF EXAM ORDERED: 02/28/2024 HISTORY: . Lung cancer screening CT DLP: 80.[address] CTDI: 2.2 mGy Automated exposure control for dose reduction was used. SCREENING VISIT: COMPARISON: 13/12/2021, 11/28/2019 TECHNIQUE: Low dose computed tomography scan was performed through the chest at 1 mm thick sections a nd reconstructed images in multiple planes at 1 mm and [address] DIAGNOSTIC QUALITY: Satisfactory FINDINGS: Mild emphysematous changes. No consolidative pneumonia. No pulmonary edema. There are multi ple subpleural pulmonary micronodules measuring 3 mm or less which are stable. For reference, image 2 17 series 4, and left upper lobe image 189 series 4 measuring 3.8 mm. Subsegmental linear scarring or atelectasis. Airways patent. Mild atherosclerotic change aorta. Assessment for adenopathy limited by lack of contr ast. Heart size normal but there is extensive dense coronary artery calcification. No pneumothorax or pleural effusion. No sizable pericardial effusion. There is a hepatic cyst stable in appearance. There is small hiatal hernia. Thickening or nodularity adrenal glands most typical benign adenoma or hyperplasia. Splenic granuloma incidentally noted. IMPRESSION: 1. Stable pulmonary micronodules unchanged from prior exam which have a benign appearance. Recommend 12 month follow-up CT scan intracranial flexures ascites guidelines. 2. Dense extensive coronary artery calcifications. 3. COPD CT LUNG RAD AND CT CHEST RECOMMENDATION: Lung-Rad 2 Benign Appearance or Behavior: Continue annual sc reening with LDCT in 12 months. [facility], , 02/28/2024 11:19 AM
== END | disposition home or self-care (01) ==
LOC: RADCTMAIN 08:55
PROVIDERS: ATTEND Family Medicine
DX: Z12.2 Encounter for screening for malignant neoplasm of respiratory organs (principal); J44.9 Chronic obstructive pulmonary disease, unspecified; I25.10 Atherosclerotic heart disease of native coronary artery without angina pectoris; R91.8 Other nonspecific abnormal finding of lung field; F17.210 Nicotine dependence, cigarettes, uncomplicated
CPT/HCPCS: 71271

== ENCOUNTER → 2024-06-26 | Outpatient (CLI) | payer MEDICAID ==
--- NOTE | 2024-06-26 16:03 | MM ---
Reason for Exam: Screening (asymptomatic). Last mammogram was performed 1 year(s) and 1 month(s) ago. Patient History: Menarche at age 12. First Full-Term at age 27. Postmenopausal. Patient used Hormonal Contraceptives for 15 years. Maternal aunt had breast cancer, age 60. Mother had breast cancer, age 50. Risk Values: Katerine 5 year model risk: 2.7%. NCI Lifetime model risk: 14.2%. Prior Study Comparison: 08/26/2020 Bilateral Screening Mammogram, [facility]. 01/28/2022 Bilateral MG 3D screening mammo w/cad, [facility]. 04/29/2023 Bilateral MG 3D screening mammo w/cad, [facility]. Tissue Density: The breasts are heterogeneously dense, which may obscure small masses. Findings: Analyzed By CAD. Right breast: There is no suspicious group of microcalcifications or new suspicious mass. Left breast: There is no suspicious group of microcalcifications or new suspicious mass. Overall Assessment: Negative, BI-RAD 1 Management: Screening Mammogram of both breasts in [address] [facility] will attempt to contact patient to return for supplemental views and ultrasound if indicated. Patient should continue monthly self-breast exams. A clinical breast exam by your physician is recommended on an annual basis. This exam should not preclude additional follow-up of suspicious palpable abnormalities. Note on Katerine scores and lifetime risk: 1. A Katerine score greater than 3% is considered moderate risk. If this is the case, consider specialist referral to assess eligibility for a risk reducing agent. 2. If overall lifetime risk for the development of breast cancer is 20% or higher, the patient may qualify for future screening with alternating mammogram and breast MRI. [facility], , 06/26/2024 3:55 PM. Electronically signed and approved by: Vipul Casiano DO
== END | disposition home or self-care (01) ==
LOC: RADMAMWWP 14:57
PROVIDERS: ATTEND Obstetrics & Gynecology
DX: Z12.31 Encounter for screening mammogram for malignant neoplasm of breast (principal); R92.333 Mammographic heterogeneous density, bilateral breasts; Z78.0 Asymptomatic menopausal state; Z80.3 Family history of malignant neoplasm of breast
CPT/HCPCS: 77063; 77067

== ENCOUNTER 2024-08-07 05:41 | Day surgery (SDC) | payer MEDICAID ==
[2024-08-03 11:08] VITALS: BMI 24.5
[2024-08-07] MEDS ORDERED: ALPRAZolam 0.25 MG TAB PO PRN ×2 (05:58→08:41)
[2024-08-07] MEDS ORDERED: HEPARIN SODIUM,PORCINE 10,000 UNIT in SODIUM CHLORIDE 0.9% 1,000 ML IRRIGATION PRN (05:58)
[2024-08-07] MEDS ORDERED: HEPARIN SODIUM,PORCINE (1 ML) 2,500 UNIT in SODIUM CHLORIDE 0.9% 250 ML IRRIGATION PRN (05:58)
[2024-08-07] MEDS ORDERED: ALPRAZolam 0.5 MG TAB PO PRN (05:58)
[2024-08-07] MEDS ORDERED: NITROGLYCERIN SL TABS 0.4 MG TAB SUBLINGUAL PRN ×2 (05:58→08:42)
[2024-08-07 06:42] LABS: Basophils # (A) 0.1 k/uL (0-0.2); Basophils % (A) 1 %; Eosinophils # (A) 0.2 k/uL (0-0.7); Eosinophils % (A) 4 %; HCT 39.5 % (34.0-46.0); HGB 13.2 gm/dL (11.4-16.0); Lymphocytes # (A) 1.2 k/uL (1.0-4.8); Lymphocytes % (A) 21 %; MCH 31.8 pg (25.0-35.0); MCHC 33.4 g/dL (31.0-37.0); MCV 95.1 fL (80.0-100.0); Mean Platelet Volume 7.2; Monocytes # (A) 0.3 k/uL (0-1.0); Monocytes % (A) 6 %; Neutrophils # (A) 3.6 k/uL (1.3-7.7); Neutrophils % (A) 66 %; Platelet Count 452 k/uL (150-450); RBC 4.15 m/uL (3.80-5.40); RDW 11.6 % (11.5-15.5); WBC 5.5 k/uL (3.8-10.6)
[2024-08-07] MEDS: SODIUM CHLORIDE 0.9% 1,000 ML in EMPTY BAG 1 BAG IV SCH ×2 (07:06→11:57)
[2024-08-07] MEDS: ASPIRIN 325 MG TAB PO STA (07:06)
[2024-08-07] MEDS: IV FLUID CONTINUATION 1,000 ML IV ONE (07:14)
[2024-08-07] MEDS: MIDAZOLAM 2 MG/2 ML VIAL IVP ONE ×3 (07:55→07:59)
[2024-08-07] MEDS: LIDOCAINE 1% INJ 10MG/ML (20 ML MDV) SQ ONE (07:58)
[2024-08-07] MEDS: VERAPAMIL SYRINGE (5 MG/10 ML) INTRAARTER ONE (08:03)
[2024-08-07] MEDS: HEPARIN SODIUM 1,000 UN/ML (10ML VL) IVP ONE ×4 (08:03→08:28)
[2024-08-07] MEDS: PRASUGREL 10 MG TAB PO ONE (08:28)
[2024-08-07] MEDS: NITROGLYCERIN 1000MCG/10ML SYRINGE INTRACORON ONE (08:37)
[2024-08-07] MEDS: IOPAMIDOL-370 200ML BTL INJ ONE (08:38)
[2024-08-07] MEDS ORDERED: RX INFO: IV CONTRAST WAS GIVEN 1 EACH MISC MISCELLANE PRN (08:42)
[2024-08-07] MEDS ORDERED: ATROPINE SULFATE 0.1 MG/ML 10ML SYRINGE IV PRN (08:42)
[2024-08-07] MEDS ORDERED: MAG HYDROX/AL HYDROX/SIMETH 30 ML CUP PO PRN (08:42)
[2024-08-07] MEDS ORDERED: ZOLPIDEM 5 MG TAB PO PRN (08:42)
--- NOTE | 2024-08-07 08:47 | P.PCN ---
Date of Procedure: 08/07/24 Operative Findings: CARDIAC CATHETERIZATION AND PERCUTANEOUS CORONARY INTERVENTION PERFORMING PHYSICIAN: Mat Simon MD, [facility] PROCEDURE PERFORMED: 1. Selective right and left coronary angiogram and left heart catheterization 2. Successful stenting of mid LAD using 4.0 x 18 mm Xience SHAKA with an excel lent angiographic results 3. Adjunctive use of IVUS and IFR 4. Ultrasound-guided access of the right radial artery INDICATION: Symptomatic 59-year-old female patient with abnormal CT calcium score with high risk features COMPLICATION: None APPROACH: Right radial artery LEVEL OF SEDATION: Moderate with the sedation time off 42 minutes PROCEDURE DESCRIPTION: After obtaining informed consent the patient was brought to the cardiac [facility] [place] with right radial artery was cannulated using micropuncture technique under ultrasound guidance the micropuncture wire passed easily then I placed a 6 F rench 11 cm sheath at the right radial artery. I gave the patient 2 mg of verapamil intra-arterial and 5000 units of heparin IV. Continuous ACT monitoring was performed throughout the procedure. After that I did selective right and left coronary angiogram using JR4 and JL 3.5 catheters. Left heart catheterization was performed using a 5 Serbian pigtail catheter with after that I decided to do an IFR of the left main and LAD. Anticoagulation was continued using heparin with continuous ACT monitoring and after zeroing the Dobler wire and equalizing between the Dobler wire and guiding catheter which was JL 3 5 guiding catheter the left main was engaged and the wire was advanced to the mid LAD where I did IFR of the some of the left main and LAD and that came in to be at 0.88 but doing pullback across the LAD lesion to the left main showed an IFR of 0.94. At that point I decided to do a PCI of the LAD. I did load the patient with Effient and subsequently I did IVUS of the LAD which showed a diameter around 3.5 to 4 mm with the predilatation was performed using 3 mm NC balloon before I deployed 4.0 x 18 mm stent where the stent was positioned under fluoroscopy guidance and deployed under fluoroscopy guidance and postdilated using 4 mm noncompliant balloon with final angiogram and IVUS showing excellent results and the procedure was completed with no complication SELECTIVE CORONARY ANGIOGRAM: The right coronary artery: Caliber vessel and a dominant vessel with mild disease only with no evidence of high-grade stenosis Left main: Calcified with disease appears to be in the range of 30 to 40% distally documented to be nonflow-limiting by Doppler wire The left circumflex: Large-caliber vessel with no evidence of high-grade stenosis The left anterior descending artery: Appears to have mild disease proximally and intermediate to severe disease in the midportion documented to be flow-limiting by Doppler wire HEMODYNAMICS: The LVEDP was about 12 mmHg with no significant gradient across aortic valve CONCLUSION: 1. Intermediate disease involving the distal left main documented to be nonflow limiting by Doppler wire 2. Intermediate disease involving the LAD in the midportion documented to be flow-limiting by Doppler wire but I did PCI of the LAD 3. Normal left-sided filling pressure POSTPROCEDURE MANAGEMENT: 1. Dual antiplatelet therapy using aspirin and Effient for 6 to 12 months month 2. Aggressive cholesterol control 3. Follow-up with the patient
[2024-08-07] MEDS: FUROSEMIDE 40 MG TAB PO SCH (16:58)
[2024-08-08] MEDS: LEVOTHYROXINE 50 MCG TAB PO SCH (05:14)
[2024-08-08 05:33] LABS: African American GFR (CKD) >90 (>60 ml/min/1.73 sqM); Non-African American GFR(CKD) >90 (>60 ml/min/1.73 sqM)
[2024-08-08 07:43] VITALS: BP 123/70; PULSE 73; RESP 16; TEMP 98.1
[2024-08-08] MEDS: ATORVASTATIN 20 MG TAB PO SCH (08:29)
[2024-08-08] MEDS: LOSARTAN 50 MG TAB PO SCH (08:29)
[2024-08-08] MEDS: ASPIRIN 81 MG PO SCH (08:29)
[2024-08-08] MEDS: amLODIPine 5 MG TAB PO SCH (08:29)
[2024-08-08] MEDS: CYANOCOBALAMIN 500 MCG TAB PO SCH (08:29)
[2024-08-08] MEDS: PRASUGREL 10 MG TAB PO SCH (08:29)
--- NOTE | 2024-08-08 09:45 | P.DS ---
Providers Attending physician: Mat Simon Consults: 08/07/24 08:42 Consult Physician Routine Consulting Provider: [facility] Reason/Comments: Post Interventional patient Do you want consulting provider notified?: Already Contacted Primary care physician: Radha Thompson [facility] Course: The patient is a pleasant 59-year-old female patient with a past medical history significant for CAD as well as hypertension and dyslipidemia was admitted to the hospital yesterday and underwent a heart catheterization and PCI of the LAD She was seen and evaluated this morning which she is asymptomatic and hemodynamically stable with a good right radial pulse The patient will be discharged home on dual antiplatelet therapy and I will follow-up with the patient next week in the office Plan - Discharge Summary Discharge Rx Participant: No New Discharge Prescriptions: New Prasugrel [Effient] 10 mg PO DAILY #90 tab Continue Irbesartan [Avapro] 300 mg PO DAILY Furosemide [Lasix] 40 mg PO DAILY ALPRAZolam [Xanax] 0.25 mg PO BID PRN PRN Reason: Anxiety Cyanocobalamin (Vitamin B-12) [Vitamin B-12] 5,000 mcg PO DIRECTED amLODIPine [Norvasc] 5 mg PO DAILY Levothyroxine Sodium [Synthroid] 50 mcg PO DAILY Rosuvastatin [Crestor] 10 mg PO DAILY Ergocalciferol [Vitamin D2 (1250 Mcg = 81145 Iu)] 1,250 mcg PO WEEKLY Aspirin EC [Ecotrin Low Dose] 81 mg PO DAILY Discharge Medication List ALPRAZolam [Xanax] 0.25 mg PO BID PRN 08/12/16 [History] Furosemide [Lasix] 40 mg PO DAILY 08/12/16 [History] Irbesartan [Avapro] 300 mg PO DAILY 08/12/16 [History] Cyanocobalamin (Vitamin B-12) [Vitamin B-12] 5,000 mcg PO DIRECTED 06/14/17 [History] Ergocalciferol [Vitamin D2 (1250 Mcg = 67765 Iu)] 1,250 mcg PO WEEKLY 02/24/23 [History] Levothyroxine Sodium [Synthroid] 50 mcg PO DAILY 02/24/23 [History] amLODIPine [Norvasc] 5 mg PO DAILY 02/24/23 [History] Aspirin EC [Ecotrin Low Dose] 81 mg PO DAILY 08/03/24 [History] Rosuvastatin [Crestor] 10 mg PO DAILY 08/03/24 [History] Prasugrel [Effient] 10 mg PO DAILY #90 tab 08/08/24 [Rx] Follow up Appointment(s)/Referral(s): Mat Simon MD [STAFF PHYSICIAN] - 1 Week (Office will call with appointment date and time) Patient Instructions/Handouts: Moderate Sedation (DC), After Radial Heart Catheterization (GEN), Left Heart Catheterization (DC) Discharge/Stand Alone Forms: Work/Release Restrictions Form, Work/School Release / Restrict Discharge Disposition: HOME SELF-CARE
[2024-08-14] MEDS ORDERED: ERGOCALCIFEROL 1,250 MCG (50,000 IU) CAPSULE PO SCH (09:00)
== END 2024-08-08 08:47 | disposition home or self-care (01) ==
LOC: CATHCVL 05:41 → 6NMEDSUR 08:35 → CATHCVL 08-08 08:47
PROVIDERS: ATTEND Internal Medicine Interventional Cardiology
DX: I25.10 Atherosclerotic heart disease of native coronary artery without angina pectoris (principal); I10 Essential (primary) hypertension; E78.5 Hyperlipidemia, unspecified; F17.200 Nicotine dependence, unspecified, uncomplicated; Z95.5 Presence of coronary angioplasty implant and graft; Z88.9 Allergy status to unspecified drugs, medicaments and biological substances; Z79.82 Long term (current) use of aspirin; Z79.890 Hormone replacement therapy; Z79.899 Other long term (current) drug therapy
CPT/HCPCS: 99152; 99153; 93005; 92978; 93458; 93799; 82565; 85025; C9600; J2250; J2003; J1644; Q9967; J2305